=== PATIENT | female | born 1990 ===

== ENCOUNTER 2019-04-17 11:28 | Emergency (ER) | payer BC ==
[2019-04-17 11:51] VITALS: BP 149/96; PULSE 99
--- NOTE | 2019-04-17 12:04 | EDM.PDOC ---
ED HPI GENERAL MEDICAL PROBLEM - General Chief Complaint: Upper Extremity Injury/Pain Stated Complaint: POSSIBLE FRACTURED L WRIST, WAS NOT GIVEN PAIN MED Time Seen by Provider: 04/17/19 11:49 Source of Information: Reports: Patient History Limitations: Reports: No Limitations - History of Present Illness INITIAL COMMENTS - FREE TEXT/NARRATIVE: Patient is a 28-year-old female who presents with complaints of left wrist pain for the last 2 weeks. She has no known injury to the wrist. Patient states that as a child she had fractured her left wrist. She states that she has intermittently had problems with pain in that wrist but attributed to having injured it previously. She states of the last 2 weeks the pain has been consistent and much worse than it has been normally. She was seen in the ER at [facility] on Tuesday. They did x-rays and told her that they thought it was fractured and that her doctor would have to call her. She was placed in a removable wrist splint and told to take Tylenol. She says she has been using Tylenol, ibuprofen, and Excedrin without relief of the pain. She said that she called to [facility] appointment [facility] and thought she had an appointment in [place], however they have apparently scheduled her in [place]. Left Wrist Pain Score (Numeric/FACES): 0 - Related Data Allergies Allergy/AdvReac Type Severity Reaction Status Date / Time bee venom protein (honey bee) Allergy Swelling Verified 04/17/19 11:51 Home Meds: Home Meds Acetaminophen/HYDROcodone [[place] 325-5 MG] 2 tab PO Q4H PRN #30 tablet 10/26/14 [Rx] Benzocaine/Menthol [Dermoplast Pain Relief [place]] 1 applic TOP ASDIRECTED PRN # 30 canister 10/26/14 [Rx] Ibuprofen [Motrin] 600 mg PO Q4H PRN #30 tablet 10/26/14 [Rx] Witch Itzel [Tucks] 1 pad TOP ASDIRECTED PRN #30 pad 10/26/14 [Rx] Acetaminophen [Tylenol] 650 mg PO Q6H PRN #0 tablet 01/28/16 [Rx] Acetaminophen/HYDROcodone [[place] 325-5 MG] 1 tab PO Q6H PRN #20 tablet 01/28/16 [Rx] Ibuprofen [IJD: Ibuprofen] 200 - 600 mg PO Q6H PRN #0 tablet 01/28/16 [Rx] predniSONE [Prednisone] 20 mg PO ASDIRECTED #12 tablet 04/17/19 [Rx] Review of Systems - Review of Systems Review Of Systems: Comprehensive ROS is negative, except as noted in HPI. ED EXAM, GENERAL - Physical Exam Exam: See Below Exam Limited By: No Limitations General Appearance: Alert, WD/WN, No Apparent Distress Respiratory/Chest: No Respiratory Distress, Lungs Clear, Normal Breath Sounds, No Accessory Muscle Use, Chest Non-Tender Cardiovascular: Normal Peripheral Pulses, Regular Rate, Rhythm, No Edema, No Gallop, No JVD, No Murmur, No Rub Extremities: Other (tenderness to dorsoradial aspect of the left wrist. No obvious edema, redness, or deformity. Pt has full ROM with pain noted on flexion of the wrist.) Psychiatric: Normal Affect, Normal Mood Skin Exam: Warm, Dry, Intact, Normal Color, No Rash Course - Vital Signs Last Recorded V/S: Last Vital Signs Temp 97.9 F 04/17/19 11:48 Pulse 99 04/17/19 11:48 Resp 18 04/17/19 11:48 BP 149/96 H 04/17/19 11:48 Pulse Ox 99 04/17/19 11:48 - Re-Assessments/Exams Free Text/Narrative Re-Assessment/Exam: 04/17/19 13:08 X-ray of the left wrist was negative for any fractures. Discussed with patient that she is likely suffering from a tendinitis. She states that since she has been wearing the wrist splint, she feels that it is getting better. I will discharge her home with a prescription for prednisone as well as instructions to continue to wear the splint to the wrist. Discharge instructions as documented. Departure - Departure Time of Disposition: 13:08 Disposition: Home, Self-Care 01 Condition: Fair Clinical Impression: Left wrist tendinitis - Discharge Information *PRESCRIPTION DRUG MONITORING PROGRAM REVIEWED*: No *COPY OF PRESCRIPTION DRUG MONITORING REPORT IN PATIENT MACK: No Prescriptions: predniSONE [Prednisone] 20 mg PO ASDIRECTED #12 tablet Instructions: Tendinitis, [id number] Referrals: PCP,None [Primary Care Provider] - Forms: ED Department Discharge Additional Instructions: You were seen in the emergency department today for left wrist pain over the last 2 weeks. X-ray was done of your wrist and that shows no fractures. It is likely that you are suffering from a tendinitis which is an inflammation of the tendons in the wrist. A prescription for prednisone has been sent to [facility]. Take this medication as prescribed. You may continue to use Tylenol or ibuprofen as needed for any pain. Intermittent icing of the joint may also help with the discomfort. Recommend that you continue to wear the immobilizer splint for the next couple weeks as this is an overuse injury. If you should experience any worsening symptoms, please do not hesitate to return to the emergency department or follow-up with a primary care provider in the clinic. Sepsis Event Note - Evaluation Sepsis Screening Result: No Definite Risk - Focused Exam Vital Signs: Vital Signs Temp Pulse Resp BP Pulse Ox 04/17/19 11:48 97.9 F 99 18 149/96 H 99 Date Exam was Performed: 04/17/19 Time Exam was Performed: 14:57
--- NOTE | 2019-04-17 12:59 | CR ---
Left wrist: Four views of the left wrist were obtained. Comparison: No previous wrist exam. Joint spaces are maintained. No fracture, dislocation or other bony abnormality is seen. Impression: 1. No abnormality is identified on four-view left wrist exam. Diagnostic code #1 This report was dictated in [place] Standard Time
== END 2019-04-17 13:23 | disposition home or self-care (01) ==
LOC: JD.ED 11:28 → MERGE 11:28 → JD.ED 13:23
DX: M77.9 Enthesopathy, unspecified (principal); Z91.030 Bee allergy status
CPT/HCPCS: 73110-26-LT; 73110-LT; 99283; 99283-25